=== PATIENT | female | born 1970 | race Caucasian/White ===

== ENCOUNTER → 2017-06-14 | Outpatient (CLI) | payer OTHER | LOC: MAMMO 09:11 | DX: Z12.31 Encounter for screening mammogram for malignant neoplasm of breast (principal) | CPT/HCPCS: G0202 ==

== ENCOUNTER → 2017-06-16 | Outpatient (CLI) | payer OTHER | LOC: MAMMO 13:31 | DX: R92.2 Inconclusive mammogram (principal); N60.02 Solitary cyst of left breast ==

== ENCOUNTER → 2018-07-12 | Outpatient (CLI) | payer OTHER | LOC: MAMMO 09:54 | DX: Z12.31 Encounter for screening mammogram for malignant neoplasm of breast (principal) ==

== ENCOUNTER 2018-10-21 20:40 | Emergency (ER) | payer OTHER ==
[~2018-10-21] VITALS: Ht 165.1 cm; Wt 171.2 kg
[2018-10-21 21:10] VITALS: BP 167/99
[2018-10-21] MEDS ORDERED: BUSPIRONE HYDRO10 MG PO (21:13)
[2018-10-21] MEDS ORDERED: ESCITALOPRAM20 MG PO (21:14)
[2018-10-21] MEDS ORDERED: SINGULAIR PO (21:14)
[2018-10-21] MEDS ORDERED: SUDAFED 12HR120 MG PO (21:14)
[2018-10-21] MEDS ORDERED: CLARITIN 1010 MG/TAB PO (21:14)
[2018-10-21] MEDS ORDERED: PEPCID 20MG TAB20 MG PO (21:15)
== END 2018-10-21 22:10 | disposition home or self-care (01) ==
LOC: ED 20:40
DX: S00.11XA Contusion of right eyelid and periocular area, initial encounter (principal); S00.211A Abrasion of right eyelid and periocular area, initial encounter; W01.190A Fall on same level from slipping, tripping and stumbling with subsequent striking against furniture, initial encounter; Y92.009 Unspecified place in unspecified non-institutional (private) residence as the place of occurrence of the external cause; D68.2 Hereditary deficiency of other clotting factors; F41.9 Anxiety disorder, unspecified; F32.9 Major depressive disorder, single episode, unspecified; Z79.899 Other long term (current) drug therapy

== ENCOUNTER → 2019-04-30 | Outpatient (CLI) | payer OTHER ==
[~2019-04-30] MED LIST: BUSPIRONE HYDRO10 MG PO; CLARITIN 1010 MG/TAB PO; ESCITALOPRAM20 MG PO; PEPCID 20MG TAB20 MG PO; SINGULAIR PO; SUDAFED 12HR120 MG PO
== END ==
LOC: RAD 07:00
DX: R10.11 Right upper quadrant pain (principal); R94.5 Abnormal results of liver function studies; Z90.49 Acquired absence of other specified parts of digestive tract

== ENCOUNTER → 2019-08-21 | Outpatient (CLI) | payer OTHER ==
[2019-07-18 21:42] VITALS: BP 113/68
[~2019-08-21] MED LIST changes: +MACROBID 100 M100 MG PO
== END ==
LOC: MAMMO 08:29
DX: Z12.31 Encounter for screening mammogram for malignant neoplasm of breast (principal)

== ENCOUNTER 2019-10-31 23:22 | Inpatient (IN) | payer OTHER ==
[~2019-10-31] VITALS: Ht 162.6 cm; Wt 183.2 kg
[2019-10-31] MEDS ORDERED: ALEVE220 M1 PO (23:32)
[2019-10-31] MEDS ORDERED: ZYRTEC ALLERGY10 MG PO (23:47)
[2019-10-31] MEDS ORDERED: NORVASC 10MG10 MG PO (23:47)
[2019-10-31] MEDS ORDERED: ALPRAZOLAM0.25 MG PO (23:47)
[2019-10-31] MEDS ORDERED: FLONASE SENSIM5.9 ML NS (23:48)
[2019-10-31] MEDS ORDERED: MAGNESIUM400 M1 PO (23:49)
[2019-10-31] MEDS ORDERED: PROTONIX TR40 M1 PO (23:49)
[2019-10-31] MEDS ORDERED: POTASSIUM CHLO20 ME3 PO (23:50)
[2019-10-31] MEDS ORDERED: PREDNISONE20 MG PO (23:51)
[2019-11-01] VITALS (12 sets, daily range): BP systolic 142–160; BP diastolic 78–101
[2019-11-01 00:30] LABS: HEMATOCRIT 44.4 % (37.0-47.0); HEMOGLOBIN 14.1 g/dL (12.5-16.0); MEAN CELL VOLUME 87 fl (78-100); MEAN CORPUSCULAR HEMOGLOBIN 28 pg (27-31); MEAN CORPUSCULAR HGB CONC 32 g/dL (33-37); MEAN PLATELET VOLUME 10.1 fl (7.4-10.4); PLATELET COUNT 409 K/mm3 (130-400); RED CELL DISTRIBUTION WIDTH 14.9 % (11.5-14.5); WHITE BLOOD COUNT 15.7 K/mm3 (4.8-10.8)
[2019-11-01 00:35] LABS: TOTAL PROTEIN 8.2 g/dL (6.4-8.3)
[2019-11-01 00:37] LABS: TOTAL BILIRUBIN 0.3 mg/dL (0.2-1.2)
[2019-11-01 00:58] LABS: ALBUMIN 4.1 g/dL (3.5-5.0); CALCIUM 9.4 mg/dL (8.3-10.5); POTASSIUM 3.7 mmol/L (3.5-5.1)
[2019-11-01 01:11] LABS: BAND 1 % (0-10); LYMPHOCYTE 8 % (20-51); MONOCYTE 3 % (3-10); NEUTROPHILS 88 % (42-75)
[2019-11-01 01:17] LABS: PH-URINE 5.5 (5.0 - 8.0); URINE APPEARANCE CLOUDY; URINE BILIRUBIN NEGATIVE (NEGATIVE); URINE BLOOD TRACE (NEGATIVE); URINE COLOR YELLOW; URINE GLUCOSE NEGATIVE (NEGATIVE); URINE KETONE 1+ (NEGATIVE); URINE LEUKOCYTE ESTERASE 1+ (NEGATIVE); URINE NITRATE NEGATIVE (NEGATIVE); URINE PROTEIN(semi-quant) 1+ mg/dL (NEGATIVE); URINE UROBILINOGEN NORMAL (NORMAL)
[2019-11-01 01:18] LABS: URINE WBC 16-30 /hpf (0-3)
[2019-11-01 10:56] LABS: HEMATOCRIT 44.3 % (37.0-47.0); HEMOGLOBIN 14.1 g/dL (12.5-16.0); MEAN CELL VOLUME 87 fl (78-100); MEAN CORPUSCULAR HEMOGLOBIN 28 pg (27-31); MEAN CORPUSCULAR HGB CONC 32 g/dL (33-37); MEAN PLATELET VOLUME 9.7 fl (7.4-10.4); PLATELET COUNT 464 K/mm3 (130-400)
[2019-11-01 11:05] LABS: POTASSIUM 3.6 mmol/L (3.5-5.1)
[2019-11-01 11:06] LABS: CALCIUM 8.9 mg/dL (8.3-10.5)
[2019-11-01 11:09] LABS: LYMPHOCYTE 7 % (20-51); MONOCYTE 4 % (3-10); NEUTROPHILS 89 % (42-75)
[2019-11-02] VITALS (8 sets, daily range): BP systolic 125–153; BP diastolic 79–93
[2019-11-02 09:28] LABS: HEMATOCRIT 44.7 % (37.0-47.0); HEMOGLOBIN 14.2 g/dL (12.5-16.0); MEAN CELL VOLUME 88 fl (78-100); MEAN CORPUSCULAR HEMOGLOBIN 28 pg (27-31); MEAN CORPUSCULAR HGB CONC 32 g/dL (33-37); MEAN PLATELET VOLUME 9.8 fl (7.4-10.4); PLATELET COUNT 436 K/mm3 (130-400); RED BLOOD COUNT 5.07 M/mm3 (4.10-5.30); RED CELL DISTRIBUTION WIDTH 15.5 % (11.5-14.5)
[2019-11-02 09:34] LABS: ALBUMIN 3.8 g/dL (3.5-5.0); POTASSIUM 3.4 mmol/L (3.5-5.1)
[2019-11-02 09:35] LABS: CALCIUM 8.6 mg/dL (8.3-10.5)
[2019-11-02 09:36] LABS: TOTAL PROTEIN 7.7 g/dL (6.4-8.3)
[2019-11-02 09:38] LABS: TOTAL BILIRUBIN 0.9 mg/dL (0.2-1.2)
[2019-11-02 09:44] LABS: BAND 5 % (0-10); LYMPHOCYTE 3 % (20-51); MONOCYTE 6 % (3-10); NEUTROPHILS 86 % (42-75)
[2019-11-02 20:09] LABS: ALBUMIN 3.5 g/dL (3.5-5.0); POTASSIUM 3.3 mmol/L (3.5-5.1)
[2019-11-02 20:10] LABS: CALCIUM 8.6 mg/dL (8.3-10.5)
[2019-11-02 20:11] LABS: HEMATOCRIT 43.1 % (37.0-47.0); HEMOGLOBIN 13.4 g/dL (12.5-16.0); MEAN CELL VOLUME 90 fl (78-100); MEAN CORPUSCULAR HEMOGLOBIN 28 pg (27-31); MEAN CORPUSCULAR HGB CONC 31 g/dL (33-37); MEAN PLATELET VOLUME 10.1 fl (7.4-10.4); PLATELET COUNT 403 K/mm3 (130-400); RED CELL DISTRIBUTION WIDTH 15.7 % (11.5-14.5); TOTAL PROTEIN 7.3 g/dL (6.4-8.3)
[2019-11-02 20:13] LABS: TOTAL BILIRUBIN 1.1 mg/dL (0.2-1.2)
[2019-11-02 20:49] LABS: WHITE BLOOD COUNT 23.1 K/mm3 (4.8-10.8)
[2019-11-02 20:50] LABS: LYMPHOCYTE 5 % (20-51); MONOCYTE 8 % (3-10); NEUTROPHILS 87 % (42-75)
[2019-11-03 02:05] VITALS: BP 118/79
[2019-11-03 05:28] VITALS: BP 116/75
[2019-11-03 10:06] LABS: HEMATOCRIT 39.3 % (37.0-47.0); HEMOGLOBIN 12.2 g/dL (12.5-16.0); MEAN CELL VOLUME 90 fl (78-100); MEAN CORPUSCULAR HEMOGLOBIN 28 pg (27-31); MEAN CORPUSCULAR HGB CONC 31 g/dL (33-37); MEAN PLATELET VOLUME 10.2 fl (7.4-10.4); PLATELET COUNT 347 K/mm3 (130-400); RED BLOOD COUNT 4.36 M/mm3 (4.10-5.30); RED CELL DISTRIBUTION WIDTH 15.5 % (11.5-14.5)
[2019-11-03 10:15] LABS: ALBUMIN 3.2 g/dL (3.5-5.0); POTASSIUM 3.3 mmol/L (3.5-5.1)
[2019-11-03 10:16] LABS: CALCIUM 8.8 mg/dL (8.3-10.5)
[2019-11-03 10:18] VITALS: BP 133/83
[2019-11-03 10:18] LABS: TOTAL PROTEIN 6.9 g/dL (6.4-8.3)
[2019-11-03 10:19] LABS: TOTAL BILIRUBIN 1.1 mg/dL (0.2-1.2)
[2019-11-03 11:24] LABS: BAND 1 % (0-10); NEUTROPHILS 83 % (42-75); WHITE BLOOD COUNT 20.7 K/mm3 (4.8-10.8)
[2019-11-03 11:25] LABS: LYMPHOCYTE 7 % (20-51); MONOCYTE 9 % (3-10)
[2019-11-03 14:38] VITALS: BP 145/83
[2019-11-03 18:17] VITALS: BP 139/85
[2019-11-03 21:53] VITALS: BP 132/83
[2019-11-04 02:32] VITALS: BP 107/64
[2019-11-04 05:00] VITALS: BP 116/66
[2019-11-04 09:31] LABS: HEMOGLOBIN 11.3 g/dL (12.5-16.0); MEAN CELL VOLUME 90 fl (78-100); MEAN CORPUSCULAR HEMOGLOBIN 28 pg (27-31); MEAN CORPUSCULAR HGB CONC 31 g/dL (33-37); MEAN PLATELET VOLUME 10.7 fl (7.4-10.4); PLATELET COUNT 329 K/mm3 (130-400); RED CELL DISTRIBUTION WIDTH 15.3 % (11.5-14.5); WHITE BLOOD COUNT 16.2 K/mm3 (4.8-10.8)
[2019-11-04 09:52] LABS: ALBUMIN 3.1 g/dL (3.5-5.0); POTASSIUM 3.1 mmol/L (3.5-5.1)
[2019-11-04 09:54] LABS: CALCIUM 8.7 mg/dL (8.3-10.5)
[2019-11-04 09:55] LABS: TOTAL PROTEIN 6.8 g/dL (6.4-8.3)
[2019-11-04 09:57] LABS: TOTAL BILIRUBIN 0.8 mg/dL (0.2-1.2)
[2019-11-04 10:00] VITALS: BP 124/71
[2019-11-04 10:14] LABS: BAND 5 % (0-10); LYMPHOCYTE 13 % (20-51); MONOCYTE 6 % (3-10); NEUTROPHILS 72 % (42-75)
[2019-11-04 14:03] VITALS: BP 130/82
[2019-11-04 17:20] VITALS: BP 117/79
[2019-11-04 22:30] VITALS: BP 110/63
[2019-11-05 02:00] VITALS: BP 136/84
[2019-11-05 06:03] VITALS: BP 121/81
[2019-11-05] MEDS ORDERED: POTASSIUM CHLO20 ME3 PO (08:49)
[2019-11-05] MEDS ORDERED: PERCOCET 325 MG1 TA2 PO (08:52)
[2019-11-05] MEDS ORDERED: ZOFRAN ODT4 MG PO (08:53)
[2019-11-05 09:39] VITALS: BP 121/76
== END 2019-11-05 10:10 | disposition home or self-care (01) | DRG 439 ==
LOC: ED 23:22 → MED/SURG 11-01 02:32
PROVIDERS: Family Medicine; Nurse Practitioner Primary Care; ADMIT Physician Assistant
DX: K85.90 Acute pancreatitis without necrosis or infection, unspecified (principal); D68.2 Hereditary deficiency of other clotting factors; N39.0 Urinary tract infection, site not specified; Z68.44 Body mass index [BMI] 60.0-69.9, adult; I10 Essential (primary) hypertension; F32.9 Major depressive disorder, single episode, unspecified; E87.6 Hypokalemia; F41.9 Anxiety disorder, unspecified; M54.5 Low back pain; Z79.52 Long term (current) use of systemic steroids; Z88.2 Allergy status to sulfonamides; E66.01 Morbid (severe) obesity due to excess calories
CPT/HCPCS: A4216; C9113; J0696; J1170; J1200; J1650; J1885; J2270; J2405; J2550; J3010; J7030; Q9967

== ENCOUNTER → 2019-11-12 | Outpatient (CLI) | payer OTHER ==
[2019-11-05 09:39] VITALS: BP 121/76
[~2019-11-12] MED LIST changes: +ALEVE220 M1 PO; +ALPRAZOLAM0.25 MG PO; +FLONASE SENSIM5.9 ML NS; +MAGNESIUM400 M1 PO; +NORVASC 10MG10 MG PO; +PERCOCET 325 MG1 TA2 PO; +POTASSIUM CHLO20 ME3 PO; +PREDNISONE20 MG PO; +PROTONIX TR40 M1 PO; +ZOFRAN ODT4 MG PO; +ZYRTEC ALLERGY10 MG PO
[2019-11-12 14:52] LABS: BASO # 0.1 (0.02-0.10); EOS # 0.3 (0.04-0.40); EOS % 1.7 % (1.0-5.0); HEMATOCRIT 39.3 % (37.0-47.0); HEMOGLOBIN 12.5 g/dL (12.5-16.0); MEAN CELL VOLUME 86 fl (78-100); MEAN CORPUSCULAR HEMOGLOBIN 27 pg (27-31); MEAN CORPUSCULAR HGB CONC 32 g/dL (33-37); MONO # 1.1 (0.20-0.80); RED BLOOD COUNT 4.56 M/mm3 (4.10-5.30); RED CELL DISTRIBUTION WIDTH 15.3 % (11.5-14.5); WHITE BLOOD COUNT 16.9 K/mm3 (4.8-10.8)
[2019-11-12 14:53] LABS: NEU # 11.9 (1.40-6.50); PLATELET COUNT 503 K/mm3 (130-400)
[2019-11-12 15:04] LABS: ALBUMIN 3.4 g/dL (3.5-5.0); POTASSIUM 4.4 mmol/L (3.5-5.1)
[2019-11-12 15:05] LABS: CALCIUM 9.4 mg/dL (8.3-10.5)
[2019-11-12 15:08] LABS: TOTAL BILIRUBIN 0.4 mg/dL (0.2-1.2)
== END ==
LOC: LAB 14:28
PROVIDERS: Family Medicine
DX: K85.90 Acute pancreatitis without necrosis or infection, unspecified (principal)

== ENCOUNTER 2019-11-18 11:22 | Emergency (ER) | payer BC ==
[~2019-11-18] VITALS: Ht 162.6 cm; Wt 171.4 kg
[2019-11-18 12:59] LABS: HEMATOCRIT 36.7 % (37.0-47.0); HEMOGLOBIN 11.8 g/dL (12.5-16.0); MEAN CELL VOLUME 85 fl (78-100); MEAN CORPUSCULAR HEMOGLOBIN 27 pg (27-31); MEAN CORPUSCULAR HGB CONC 32 g/dL (33-37); MEAN PLATELET VOLUME 9.9 fl (7.4-10.4)
[2019-11-18 13:02] LABS: PLATELET COUNT 594 K/mm3 (130-400); WHITE BLOOD COUNT 28.5 K/mm3 (4.8-10.8)
[2019-11-18 13:10] LABS: ALBUMIN 3.1 g/dL (3.5-5.0); BAND 3 % (0-10); LYMPHOCYTE 12 % (20-51); MONOCYTE 10 % (3-10); NEUTROPHILS 75 % (42-75)
[2019-11-18 13:11] LABS: POTASSIUM 4.9 mmol/L (3.5-5.1)
[2019-11-18 13:12] LABS: CALCIUM 9.8 mg/dL (8.3-10.5)
[2019-11-18 13:13] LABS: TOTAL PROTEIN 7.5 g/dL (6.4-8.3)
[2019-11-18 16:20] VITALS: BP 130/80
== END 2019-11-18 16:25 | disposition short-term general hospital (02) ==
LOC: ED 11:22
PROVIDERS: Family Medicine
DX: R19.06 Epigastric swelling, mass or lump (principal); E66.01 Morbid (severe) obesity due to excess calories; D68.2 Hereditary deficiency of other clotting factors; Z68.44 Body mass index [BMI] 60.0-69.9, adult
CPT/HCPCS: J2543; J7030

== ENCOUNTER → 2020-09-09 | Outpatient (CLI) | payer BC | LOC: MAMMO 13:45 | DX: Z12.31 Encounter for screening mammogram for malignant neoplasm of breast (principal) ==

== ENCOUNTER → 2021-09-08 | Outpatient (CLI) | payer BC | LOC: MAMMO 09:57 | DX: Z12.31 Encounter for screening mammogram for malignant neoplasm of breast (principal) ==

== ENCOUNTER → 2023-01-27 | Outpatient (CLI) | payer BC ==
[2023-01-27 11:08] LABS: BASO # 0.05 K/mm3 (0.02-0.10); EOS # 0.33 K/mm3 (0.04-0.40); EOS % 4.2 % (1.0-5.0); HEMATOCRIT 42.3 % (37.0-47.0); HEMOGLOBIN 13.3 g/dL (12.5-16.0); LYMPH# 2.05 K/mm3 (1.50-4.00); MEAN CELL VOLUME 89 fl (78-100); MEAN CORPUSCULAR HEMOGLOBIN 28 pg (27-31); MEAN CORPUSCULAR HGB CONC 31 g/dL (33-37); MONO # 0.51 K/mm3 (0.20-0.80); NEU # 4.88 K/mm3 (1.40-6.50); PLATELET COUNT 289 K/mm3 (130-400); RED BLOOD COUNT 4.73 M/mm3 (4.10-5.30); RED CELL DISTRIBUTION WIDTH 15.5 % (11.5-14.5); WHITE BLOOD COUNT 7.8 K/mm3 (4.8-10.8)
[2023-01-27 11:16] LABS: ALBUMIN 4.2 g/dL (3.5-5.0)
[2023-01-27 11:17] LABS: POTASSIUM 3.9 mmol/L (3.5-5.1); SODIUM 139 mmol/L (136-145)
[2023-01-27 11:18] LABS: CALCIUM 9.4 mg/dL (8.3-10.5)
[2023-01-27 11:19] LABS: GLUCOSE 95 mg/dL (65-105); TOTAL PROTEIN 8.2 g/dL (6.4-8.3)
[2023-01-27 11:20] LABS: CARBON DIOXIDE 22 mmol/L (22-29)
[2023-01-27 11:21] LABS: TOTAL BILIRUBIN 0.4 mg/dL (0.2-1.2)
[2023-01-27 11:24] LABS: AST-SGOT 21 U/L (5-34)
[2023-01-27 11:26] LABS: ALT/SGPT 30 U/L (0-55)
[2023-01-27 11:41] LABS: TROPONIN-I < 0.030 ng/mL (<0.030)
[2023-01-27 12:14] LABS: D-DIMER 1.4 mg/L FEU (0.15-0.50)
== END ==
LOC: RAD 10:39
PROVIDERS: Nurse Practitioner Family
DX: R06.00 Dyspnea, unspecified (principal)

== ENCOUNTER → 2024-04-19 | Outpatient (CLI) | payer BC | LOC: RAD 09:00 | DX: Z12.31 Encounter for screening mammogram for malignant neoplasm of breast (principal) ==

== ENCOUNTER → 2024-04-30 | Outpatient (CLI) | payer BC | LOC: RAD 10:52 | DX: Z01.818 Encounter for other preprocedural examination (principal) ==